=== PATIENT | male | born 1990 | race Caucasian/White ===

== ENCOUNTER 2021-03-13 12:08 | Emergency (ER) | payer MEDICAID, SELFPAY ==
--- NOTE | ~2021-03-13 | CT_ITS ---
EXAMINATION: CT HEAD WITHOUT CONTRAST CLINICAL INFORMATION: Status post CVA. Dizziness and right leg numbness since yesterday. Past history of drug abuse COMPARISON: No previous at this institution. TECHNIQUE: Contiguous axial imaging was performed from the skull base to vertex without intravenous administration of contrast. This CT examination was performed using dose optimization techniques as appropriate, variously including the following: *Automated exposure control *Adjustment of mA and/or kV according to patient size (this includes techniques or standardized protocols for targeted exams where dose is matched to indication/reason for exam; i.e. extremities or head) *Use of iterative reconstruction technique DLP: 707 mGy-cm FINDINGS: There is no evidence of acute intra-axial or extra-axial hemorrhage. There is a bilateral hypodensity seen in both cerebral hemispheres likely edema or infarct. Question age. There is punctate calcification seen in the left cerebellar hemisphere axial image 28/06. No abnormal mass effect or midline shift is seen. Garcia to white matter differentiation is well preserved. No extra-axial fluid collections are identified. The ventricles are normal in size. There is no abnormal attenuation within the brain parenchyma. The osseous structures and soft tissues are normal. The mastoid air cells and visualized portions of the paranasal sinuses are well aerated. CT/CT head/brain wo con IMPRESSION: Acute symmetrical hypodensity in bilateral posterior cerebellar hemispheres question infarct versus edema, new versus old. Consider MRI brain without contrast for further evaluation. There is no acute intracranial bleed or midline shift. Results were discussed by phone with YOLIS Herrera in the ER at 3:43PM
--- NOTE | ~2021-03-13 | XR_ITS ---
EXAMINATION: TIBIA-FIBULA BILATERAL CLINICAL INFORMATION: Swelling osteomyelitis question COMPARISON: None TECHNIQUE: Frontal and lateral views tibia and fibula right and left. FINDINGS: No radiographic evidence of bone destruction or bone lysis to suggest osteomyelitis. No periosteal reaction. Surrounding soft tissue unremarkable. No subcutaneous emphysema. Mild degenerative osteoarthritic changes of the knees bilateral. XR/XR tibia fibula LT 2V IMPRESSION: No radiographic changes to suggest osteomyelitis.
--- NOTE | ~2021-03-13 | MR_ITS ---
EXAMINATION: MR BRAIN WITHOUT CONTRAST CLINICAL INFORMATION: Stroke. COMPARISON: CT head from 03/13/2021. TECHNIQUE: MRI of the brain was obtained using routine sequences without contrast. FINDINGS: No focal restricted diffusion is demonstrated to suggest acute or subacute cerebral ischemia. No evidence of acute or chronic hemorrhagic products on heme-sensitive imaging. Symmetric encephalomalacia and atrophy of the bilateral inferior-posterior cerebellar hemispheres. Few nonspecific scattered supratentorial periventricular and deep white matter T2 FLAIR hyperintensities. No additional parenchymal signal abnormalities. No overt supratentorial volume loss. No abnormal mass effect. No midline shift. Normal appearance of the pituitary gland. Normal positioning of the cerebellar tonsils. Normal arterial and venous vascular flow voids are present. Normal, homogeneous marrow signal. Mild mucosal thickening of the paranasal sinuses. Trace bilateral mastoid effusions. MR/MR head/brain wo con IMPRESSION: 1. No acute intracranial abnormalities. 2. Symmetric chronic encephalomalacia and atrophy of the bilateral inferior-posterior cerebellar hemispheres. Minimal nonspecific supratentorial white matter changes.
--- NOTE | ~2021-03-13 | US_ITS ---
EXAMINATION: US VENOUS ULTRASOUND WITH DOPPLER LOWER EXTREMITY, BILATERAL CLINICAL INFORMATION: Bilateral lower extremity swelling COMPARISON: None TECHNIQUE: Ultrasound of the deep veins is performed from the hip to the calf with compression sonography and color and pulse Doppler assessment. Spectral analysis with color-flow imaging is performed. FINDINGS: RIGHT: There is normal venous compression and respiratory variation and augmented flow. The visualized common femoral vein, superficial femoral vein, profunda femoral vein, popliteal vein, and the trifurcation region shows no evidence of deep venous thrombosis. There is no significant popliteal fossa cyst. LEFT: There is normal venous compression and respiratory variation and augmented flow. The visualized common femoral vein, superficial femoral vein, profunda femoral vein, popliteal vein, and the trifurcation region shows no evidence of deep venous thrombosis. There is no significant popliteal fossa cyst. US/US venous duplex LE BI IMPRESSION: No DVT demonstrated in the bilateral lower extremity.
--- NOTE | ~2021-03-13 | XR_ITS ---
EXAMINATION: TIBIA-FIBULA BILATERAL CLINICAL INFORMATION: Swelling osteomyelitis question COMPARISON: None TECHNIQUE: Frontal and lateral views tibia and fibula right and left. FINDINGS: No radiographic evidence of bone destruction or bone lysis to suggest osteomyelitis. No periosteal reaction. Surrounding soft tissue unremarkable. No subcutaneous emphysema. Mild degenerative osteoarthritic changes of the knees bilateral. XR/XR tibia fibula RT 2V IMPRESSION: No radiographic changes to suggest osteomyelitis.
--- NOTE | ~2021-03-13 | XR_ITS ---
EXAMINATION: XR CHEST CLINICAL INFORMATION: Leg swelling. COMPARISON: None TECHNIQUE: 2 views of the chest were obtained. FINDINGS: No significant abnormality is noted involving the heart, lungs, mediastinum, bony thorax or soft tissues. XR/XR chest 2V IMPRESSION: Unremarkable chest examination.
[2021-03-13 12:14] VITALS: BP 124/68; BP 140/82; PULSE 113; PULSE 72; RESP 18; TEMP 36.6; O2SAT 96; O2SAT 99; BMI 28.2
--- NOTE | 2021-03-13 12:39 | ECG_ITS ---
Test Reason : GENERAL MEDICINE Blood Pressure : / mmHG Vent. Rate : 061 BPM Atrial Rate : 061 BPM P-R Int : 132 ms QRS Dur : 076 ms QT Int : 404 ms P-R-T Axes : 031 051 032 degrees QTc Int : 406 ms Normal sinus rhythm ST elevation, consider early repolarization Borderline ECG No previous ECGs available Referred By: Ave Worley Electronically Signed By:Emre Hoffmann
[2021-03-13 13:07] LABS: MANUAL DIFF FLAG NO
[2021-03-13 13:09] LABS: Basophils Percent Auto 0.5 % (0-2); Eosinophils Absolute Auto 0.2 X10*3/uL (0.0-0.4); Eosinophils Percent Auto 4.8 % (0-4); Hematocrit 41.6 % (42.0-52.0); Hemoglobin 13.5 g/dl (14.0-18.0); Lymphocytes Absolute Auto 1.1 X10*3/uL (1.2-4.9); Lymphocytes Percent Auto 29.8 % (20-40); Mean Corpuscular HGB Conc 32.5 g/dl (31.0-36.0); Mean Corpuscular Hemoglobin 28.8 pg (27.0-33.0); Mean Corpuscular Volume 88.7 fL (80.0-98.0); Mean Platelet Volume 11.8 fL (9.4-12.4); Monocytes Absolute Auto 0.4 X10*3/uL (0.1-1.2); Monocytes Percent Auto 9.4 % (2-11); Neutrophils Absolute Auto 2.1 x10*3/uL (2.0-8.3); Neutrophils Percent Auto 55.5 % (45-73); Platelet Count 162 X10*3/uL (160-400); Red Blood Count 4.69 X10*6/uL (4.60-5.80); Red Cell Distribution Width 13.1 % (11.0-16.0); White Blood Count 3.7 X10*3/uL (4.8-10.8)
[2021-03-13 13:13] LABS: Prothrombin Time 11.2 SEC (9.9-13.0)
[2021-03-13 13:29] LABS: Alanine Aminotransferase 36 U/L (0-40); Alkaline Phosphatase 62 U/L (39-117); Anion Gap 11 (12-20); Aspartate Amino Transferase 46 U/L (5-37); Bilirubin Total 0.8 mg/dL (0.0-1.0); Blood Urea Nitrogen 10 mg/dL (9-16); Calcium 9.2 mg/dL (8.4-10.2); Carbon Dioxide 28 mmol/L (22-29); Chloride 106 mmol/L (96-108); Creatinine Clr Calc Pharmacy 177.9; Estimated Glomerular Filt Rate > 60; Glucose Random 95 mg/dL (60-115); Potassium 4.3 mmol/L (3.3-5.1); Sodium 141 mmol/L (135-145); Total Protein 6.5 g/dL (6.5-8.0)
[2021-03-13 13:35] LABS: B Type Natriuretic Peptide 22 pg/mL (<100)
[2021-03-13 13:38] LABS: Appearance Urine CLEAR; Color Urine YELLOW; Glucose Urine UA NEG (NEG); Leukocyte Esterase Urine NEG (NEG); Nitrite Urine NEG (NEG); Specific Gravity - Urine 1.015 (1.005-1.025); Urine Blood NEG (NEG); Urine Ketones 5 MG/DL (NEG); Urine Protein TRACE MG/DL (NEG-TRACE)
--- NOTE | 2021-03-13 14:12 | ED_ITS ---
HPI - Extremity Problem General Chief complaint: Extremity Problem <YOLIS Herrera Last Filed: 03/13/21 17:56> Stated complaint: MARCOS LOW EXT SWELLING <YOLIS Herrera Last Filed: 03/13/21 17:56> Time Seen by Provider: 03/13/21 12:39 <YOLIS Herrera Last Filed: 03/13/21 17:56> Source: patient and EMS <YOLIS Herrera Last Filed: 03/13/21 17:56> Mode of arrival: EMS <YOLIS Herrera Last Filed: 03/13/21 17:56> Limitations: other ( history of CVA and dysarthria left-sided residual weakness and abnormal gait since then) <YOLIS Herrera Last Filed: 03/13/21 17:56> History of Present Illness HPI Narrative: 30-year-old male who reports he has a past medical 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 He reports that he was waiting at [facility] in the waiting room yesterday and the wait was too long therefore he left and his legs were more swollen yesterday. He showed me teresa stephenson for proof. He reports he has a history of clots. He states that his left arm for the past 4 days has been having intermittent numbness and tingling although since yesterday morning when he woke up around 9am he has been having right thigh numbness that has been constant since yesterday morning. He reports associated visual changes since yesterday morning when he woke up. He denies any dizziness, headaches, neck pain/ stiffness, chest pain or shortness of breath, dyspnea on exertion, orthopnea, palpitations, nausea/vomiting /diarrhea, rashes, recent travel or immobilization, recent surgical procedure, history of PVD, history of gout or recent illness or any other symptoms complaints or concerns at this time. He denies any drug usage. <YOLIS Herrera Last Filed: 03/13/21 17:56> MD Complaint: extremity pain and extremity swelling <YOLIS Herrera Last Filed: 03/13/21 17:56> Onset (ago): day(s) ( For the past 2-4 days ) <YOLIS Herrera Last Filed: 03/13/21 17:56> Pain Consistency: constant and other ( improving) <YOLIS Herrera Last Filed: 03/13/21 17:56> Location: left, right and lower extremity <YOLIS Herrera Last Filed: 03/13/21 17:56> Radiation: none <YOLIS Herrera Last Filed: 03/13/21 17:56> Relieving factors: nothing <YOLIS Herrera Last Filed: 03/13/21 17:56> Exacerbating factors: nothing <YOLIS Herrera Last Filed: 03/13/21 17:56> Associated symptoms: other ( reports intermittent paresthesias to left arm and constant paresthesias to right thigh and blurry vision since yesterday morning around 09:00) <YOLIS Herrera Last Filed: 03/13/21 17:56> Related Data Home medications: Previous Rx's Medication Instructions Recorded cephalexin 500 mg capsule 500 mg PO QID 7 Days #28 cap 03/13/21 doxycycline hyclate 100 mg capsule 100 mg PO BID 7 Days #14 cap 03/13/21 naproxen 500 mg tablet 500 mg PO BID PRN 10 Days #20 tab 03/13/21 <YOLIS Herrera Last Filed: 03/13/21 17:56> Allergies/Adverse reactions: Allergies Allergy/AdvReac Type Severity Reaction Status Date / Time No Known Allergies Allergy Verified 03/13/21 12:37 <YOLIS Herrera Last Filed: 03/13/21 17:56> Review of Systems Review of Systems: Constitutional : No Fever, No Chills, No Night Sweats, No Fatigue, No Malaise ENT/Mouth : No Ear Pain, No Nasal Congestion, No Sinus Pain, No sore throat, No Rhinorrhea Eyes: positive blurry vision, No Eye Pain, No Swelling, No Redness, No Foreign Body, No Discharge Cardiovascular : No Chest Pain, No SOB, No Dyspnea on Exertion, No Orthopnea, No Palpitations Respiratory : No Cough, No Sputum, No Wheezing, No Dyspnea Gastrointestinal : No Nausea, No Vomiting, No Diarrhea, No Constipation, No abdominal Pain, No Hematochezia, No Melena Genitourinary : No Dysuria, No Urinary Frequency, No Urinary Incontinence, No Urgency, No Flank Pain Musculoskeletal : positive bilateral lower extremity edema/redness, No joint pain, No Myalgias Skin : No lacerations Neuro : positive numbness/paresthesia intermittently to left arm and constant to right thigh, No Focal weakness, no general weakness, No Loss of Consciousness, No Dizziness, No Headache <YOLIS Herrera - Last Filed: 03/13/21 17:56> Yes all other systems are reviewed and are negative <YOLIS Herrera - Last Filed: 03/13/21 17:56> [facility] Past Medical History Attestation statement: The following information was validated with the patient. <YOLIS Herrera - Last Filed: 03/13/21 17:56> Social History Social History: Social History Advance Directives: No Advance Directives Information Provided: Yes <YOLIS Herrera - Last Filed: 03/13/21 17:56> Physical Exam Vital Signs: Vital Signs: Last Vital Signs Temp 97.9 F 03/13/21 14:48 Pulse 51 03/13/21 19:21 Resp 14 03/13/21 19:21 BP 105/62 03/13/21 19:21 Pulse Ox 99 03/13/21 19:21 BMI result Body Mass Index 28.2 Vital signs have been reviewed as normal and appeared to be correct. Blood pressure normal. Heart rate normal. Respiration rate normal. Temperature normal. Oxygen saturation normal. <YOLIS Herrera - Last Filed: 03/13/21 17:56> Vital Signs: Last Vital Signs Temp 97.9 F 03/13/21 14:48 Pulse 51 03/13/21 19:21 Resp 14 03/13/21 19:21 BP 105/62 03/13/21 19:21 Pulse Ox 99 03/13/21 19:21 BMI result Body Mass Index 28.2 <YOLIS Oakes - Last Filed: 03/13/21 21:28> Appearance: Alert. Oriented X3. No acute distress. Head: Normal external exam. Normocephalic. Atraumatic. Able to rotate head bilaterally. Eyes: PERRLA. EOMI. No nystagmus noted. Conjunctiva and sclera normal. Eyelids normal. Corneal reflex normal. ENT: EAC normal. TM's Normal. Hearing normal. Pharynx normal. Uvula midline. tongue midline. Moist mucous membranes. No trismus noted. No drooling noted. No muffled voice noted. No nystagmus noted. Neck: Normal inspection. Neck supple. FROM. No adenopathy. Trachea midline. Thyroid Normal. No meningeal signs. No neck mass noted. CVS: Normal heart rate and rhythm. Heart sound normal. No murmurs noted. Pulses normal throughout. Respiratory: No respiratory distress. Painless inspiration. Breath sounds normal. No wheezes/rales/rhonchi noted. Chest nontender. No accessory muscle usage noted or decreased air movement noted. Abdomen: Soft and nontender. Bowel sounds normal in all 4 quadrants. No distention noted. No organomegaly noted. No visible injury noted. Back: No CVA tenderness. Full range of motion noted. Skin: Skin warm and dry. Normal skin color. Normal skin turgor. No rashes/lesions/lacerations noted. Extremities: Plus one lower extremity pitting edema. No calf tenderness is noted. Extremities exhibit normal range of motion. Extremities nontender. Able to shrug shoulders bilaterally and keep up against resistance. Neuro: Oriented X 3. residual left upper and lower extremity motor deficit 4/5 with strength. Although on my exam it appears that patient has motor deficit to the right upper and lower extremity 4/5 with strength. He has full sensation on all 4 extremities. Reflexes are normal. He is moving all extremities. No focal motor deficits. Cranial nerves II-XI intact bilaterally. Facial strength normal. Normal cognition. He has chronic dysarthria he reports this is his baseline. He has chronic ataxia he reports this is his baseline. No pronator drift. No tremor noted. No fasciculations noted. No rigidity noted. Muscle tone normal throughout. No asterixis noted. [id number] test normal. Heel to doran test normal. Does not sway with eyes open. Romberg test negative. Rapid alternating movement upper extremity normal. Rapid alternating movement lower extremity normal. Hand drop from overhead Misses face. NIHSS score 2. <YOLIS Herrera - Last Filed: 03/13/21 17:56> NIH Stroke Scale Internal: Initial- Upon Arrival <YOLIS Herrera - Last Filed: 03/13/21 17:56> Time: 12:40 <Ave Worley PA - Last Filed: 03/13/21 17:56> Level of Consciousness: Alert <YOLIS Herrera - Last Filed: 03/13/21 17:56> Level of Consciousness Questions: Answers both questions correctly <YOLIS Herrera - Last Filed: 03/13/21 17:56> Level of Consciousness Commands: Performs both tasks correctly <YOLIS Herrera - Last Filed: 03/13/21 17:56> Best Gaze: Normal <Ave Worley PA - Last Filed: 03/13/21 17:56> Visual: No visual loss <YOLIS Herrera - Last Filed: 03/13/21 17:56> Facial Palsy: Normal <Ave Worley PA - Last Filed: 03/13/21 17:56> Motor Arm (Right): No drift <Ave Worley PA - Last Filed: 03/13/21 17:56> Motor Arm (Left): No drift <Ave Worley PA - Last Filed: 03/13/21 17:56> Motor Leg (Right): No drift <Ave Worley PA - Last Filed: 03/13/21 17:56> Motor Leg (Left): No drift <YOLIS Herrera - Last Filed: 03/13/21 17:56> Limb Ataxia: Present in one limb (chronic per patient ) <Ave Worley PA - Last Filed: 03/13/21 17:56> Sensory: Normal <Ave Worley PA - Last Filed: 03/13/21 17:56> Best Language: No aphasia <YOLIS Herrera - Last Filed: 03/13/21 17:56> Dysarthia: Mild to moderate dysarthria (which pt reports is chronic) <Ave Worley PA - Last Filed: 03/13/21 17:56> Extinction and Inattention: No abnormality <Ave Worley PA - Last Filed: 03/13/21 17:56> Score: 2 <YOLIS Herrera - Last Filed: 03/13/21 17:56> 2 <YOLIS Oakes - Last Filed: 03/13/21 21:28> Course Reevaluation(s) Reevaluation #1: - labs reviewed and patient with a white blood cell count of 4000. H&H of 13.5 / 41.6. Anion gap 11. AST 46. Otherwise all other labs including troponin BNP within normal limits. UA revealed 5 ketones otherwise no evidence of UTI. - Bilateral duplex ultrasound of lower extremities negative for DVT. Patient most likely pedal edema. - Chest x-ray within normal limits no acute processes are noted. - CT scan of brain without contrast revealed acute symmetrical hypodensity and bilateral posterior cerebral hemispheres question infarct versus edema, new versus old. therefore Dr. Hutton the radiologist called me and told me that an MRI brain without contrast for further evaluation and treatment was indicated/ warranted at this time. There is no acute intercranial bleed or mid line shift. Therefore MRI screening form done at this time and patient will be going to MRI without contrast for further evaluation treatment. Patient understands agrees with this plan. <YOLIS Herrera - Last Filed: 03/13/21 17:56> Time: 15:43 <YOLIS Herrera - Last Filed: 03/13/21 17:56> Reevaluation #2: Sign out to ALMAZ Barrow pending MRI of Brain without contrast <YOLIS Herrera - Last Filed: 03/13/21 17:56> Time: 17:55 <YOLIS Herrera - Last Filed: 03/13/21 17:56> Reevaluation #3: Patient's MRI came back negative for acute stroke. Patient is at baseline mentally and physically. Case was discussed with neurologist Dr. Cobb he was informed of patient's history, physical exam, and diagnostics. He was also sent patient MRI report. He states patient to be discharged with outpatient follow-up with PCP first and than refer to neurolgist covered by insurance. Patient lower extremity x-rays negative for osteomyelitis. Patient will be treated as a cellulitis and discharged with antibiotics. Patient formed follow with primary care provider. Patient vital signs are stable. Once again patient is at baseline. Patient legs especially right is warm and slightly red. 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 He reports that he was waiting at [facility] in the waiting room yesterday and the wait was too long therefore he left and his legs were more swollen yesterday. He showed me pictures for proof. He reports he has a history of clots. He states that his left arm for the past 4 days has been having intermittent numbness and tingling although since yesterday morning when he woke up around 9am he has been having right thigh numbness that has been constant since yesterday morning. He reports associated visual changes since yesterday morning when he woke up. - On exam patient is alert and oriented x3. Not in any acute distress. He does have chronic dysarthria and ataxia and left residual weakness that he reports is at baseline since he had his stroke in 2019. Although on my exam it is noted that he has 4/5 strength to the right upper and lower extremities. Therefore NIH SS score 2 at this time. Although patient has non disabling symptoms other than what he already had from his stroke in 2019 and his symptoms started 2-4 days ago therefore not a tPA candidate at this time. Plan: Labs, EKG, chest x-ray, CT scan of brain without contrast, bilateral duplex ultrasound of lower extremities then re-evaluate. <YOLIS Herrera - Last Filed: 03/13/21 17:56> Medical Records Attestation: I reviewed the patient's medical records. <YOLIS Herrera - Last Filed: 03/13/21 17:56> Lab Data Attestation: I reviewed the patient's lab results. <YOLIS Herrera - Last Filed: 03/13/21 17:56> Result diagrams: : 03/13/21 12:52 03/13/21 12:53 <YOLIS Herrera - Last Filed: 03/13/21 17:56> Labs: Lab Results 03/13/21 03/13/21 03/13/21 Range/Units 12:52 12:52 12:53 WBC 3.7 L (4.8-10.8) X10*3/uL RBC 4.69 (4.60-5.80) X10*6/uL Hgb 13.5 L (14.0-18.0) g/dl Hct 41.6 L (42.0-52.0) % MCV 88.7 (80.0-98.0) fL MCH 28.8 (27.0-33.0) pg MCHC 32.5 (31.0-36.0) g/dl RDW 13.1 (11.0-16.0) % Plt Count 162 (160-400) X10*3/uL MPV 11.8 (9.4-12.4) fL Immature Gran % (Auto) 0.0 (0.0-0.4) % Neut % (Auto) 55.5 (45-73) % Lymph % (Auto) 29.8 (20-40) % Lynn % (Auto) 9.4 (2-11) % Eos % (Auto) 4.8 H (0-4) % Baso % (Auto) 0.5 (0-2) % Lymph # (Auto) 1.1 L (1.2-4.9) X10*3/uL Lynn # (Auto) 0.4 (0.1-1.2) X10*3/uL Eos # (Auto) 0.2 (0.0-0.4) X10*3/uL Baso # (Auto) 0.0 (0.0-0.2) X10*3/uL Abs Immat Gran (auto) 0.00 (0.00-0.03) X10*3/uL Absolute Neuts (auto) 2.1 (2.0-8.3) x10*3/uL Absolute Nucleated RBC 0.000 (0.0-0.012) X10*3/uL Nucleated RBC % (auto) 0.0 (0.0-0.2) /100WBC Hold Purple Top PT 11.2 (9.9-13.0) SEC INR 1.0 (0.9-1.1) Sodium (135-145) mmol/L Potassium (3.3-5.1) mmol/L Chloride (96-108) mmol/L Carbon Dioxide (22-29) mmol/L Anion Gap (12-20) BUN (9-16) mg/dL Creatinine (0.5-1.4) mg/dL Estim Creat Clear Calc Estimated GFR Random Glucose (60-115) mg/dL Calcium (8.4-10.2) mg/dL Magnesium (1.6-2.6) mg/dL Total Bilirubin (0.0-1.0) mg/dL AST (5-37) U/L ALT (0-40) U/L Alkaline Phosphatase (39-117) U/L Troponin I High Sens (<3.5-35.0) ng/L B-Natriuretic Peptide 22 (<100) pg/mL Total Protein (6.5-8.0) g/dL Albumin (3.5-5.0) g/dL Urine Color Urine Appearance Urine pH (5.0-8.0) Ur Specific [place] (1.005-1.025) Urine Protein (NEG-TRACE) MG/DL Urine Glucose (UA) (NEG) MG/DL Urine Ketones (NEG) MG/DL Urine Blood (NEG) Urine Nitrite (NEG) Ur Leukocyte Esterase (NEG) COVID-19 (MATHIEU) (Negative) COVID-19 Clin Com 03/13/21 03/13/21 03/13/21 Range/Units 12:53 12:53 12:53 WBC (4.8-10.8) X10*3/uL RBC (4.60-5.80) X10*6/uL Hgb (14.0-18.0) g/dl Hct (42.0-52.0) % MCV (80.0-98.0) fL MCH (27.0-33.0) pg MCHC (31.0-36.0) g/dl RDW (11.0-16.0) % Plt Count (160-400) X10*3/uL MPV (9.4-12.4) fL Immature Gran % (Auto) (0.0-0.4) % Neut % (Auto) (45-73) % Lymph % (Auto) (20-40) % Lynn % (Auto) (2-11) % Eos % (Auto) (0-4) % Baso % (Auto) (0-2) % Lymph # (Auto) (1.2-4.9) X10*3/uL Lynn # (Auto) (0.1-1.2) X10*3/uL Eos # (Auto) (0.0-0.4) X10*3/uL Baso # (Auto) (0.0-0.2) X10*3/uL Abs Immat Gran (auto) (0.00-0.03) X10*3/uL Absolute Neuts (auto) (2.0-8.3) x10*3/uL Absolute Nucleated RBC (0.0-0.012) X10*3/uL Nucleated RBC % (auto) (0.0-0.2) /100WBC Hold Purple Top SEE NOTE PT (9.9-13.0) SEC INR (0.9-1.1) Sodium 141 (135-145) mmol/L Potassium 4.3 (3.3-5.1) mmol/L Chloride 106 (96-108) mmol/L Carbon Dioxide 28 (22-29) mmol/L Anion Gap 11 L (12-20) BUN 10 (9-16) mg/dL Creatinine 0.78 (0.5-1.4) mg/dL Estim Creat Clear Calc 177.9 Estimated GFR > 60 Random Glucose 95 (60-115) mg/dL Calcium 9.2 (8.4-10.2) mg/dL Magnesium 2.0 (1.6-2.6) mg/dL Total Bilirubin 0.8 (0.0-1.0) mg/dL AST 46 H (5-37) U/L ALT 36 (0-40) U/L Alkaline Phosphatase 62 (39-117) U/L Troponin I High Sens < 3.5 (<3.5-35.0) ng/L B-Natriuretic Peptide (<100) pg/mL Total Protein 6.5 (6.5-8.0) g/dL Albumin 4.0 (3.5-5.0) g/dL Urine Color Urine Appearance Urine pH (5.0-8.0) Ur Specific [place] (1.005-1.025) Urine Protein (NEG-TRACE) MG/DL Urine Glucose (UA) (NEG) MG/DL Urine Ketones (NEG) MG/DL Urine Blood (NEG) Urine Nitrite (NEG) Ur Leukocyte Esterase (NEG) COVID-19 (MATHIEU) (Negative) COVID-19 Clin Com 03/13/21 03/13/21 Range/Units 13:23 16:11 WBC (4.8-10.8) X10*3/uL RBC (4.60-5.80) X10*6/uL Hgb (14.0-18.0) g/dl Hct (42.0-52.0) % MCV (80.0-98.0) fL MCH (27.0-33.0) pg MCHC (31.0-36.0) g/dl RDW (11.0-16.0) % Plt Count (160-400) X10*3/uL MPV (9.4-12.4) fL Immature Gran % (Auto) (0.0-0.4) % Neut % (Auto) (45-73) % Lymph % (Auto) (20-40) % Lynn % (Auto) (2-11) % Eos % (Auto) (0-4) % Baso % (Auto) (0-2) % Lymph # (Auto) (1.2-4.9) X10*3/uL Lynn # (Auto) (0.1-1.2) X10*3/uL Eos # (Auto) (0.0-0.4) X10*3/uL Baso # (Auto) (0.0-0.2) X10*3/uL Abs Immat Gran (auto) (0.00-0.03) X10*3/uL Absolute Neuts (auto) (2.0-8.3) x10*3/uL Absolute Nucleated RBC (0.0-0.012) X10*3/uL Nucleated RBC % (auto) (0.0-0.2) /100WBC Hold Purple Top PT (9.9-13.0) SEC INR (0.9-1.1) Sodium (135-145) mmol/L Potassium (3.3-5.1) mmol/L Chloride (96-108) mmol/L Carbon Dioxide (22-29) mmol/L Anion Gap (12-20) BUN (9-16) mg/dL Creatinine (0.5-1.4) mg/dL Estim Creat Clear Calc Estimated GFR Random Glucose (60-115) mg/dL Calcium (8.4-10.2) mg/dL Magnesium (1.6-2.6) mg/dL Total Bilirubin (0.0-1.0) mg/dL AST (5-37) U/L ALT (0-40) U/L Alkaline Phosphatase (39-117) U/L Troponin I High Sens (<3.5-35.0) ng/L B-Natriuretic Peptide (<100) pg/mL Total Protein (6.5-8.0) g/dL Albumin (3.5-5.0) g/dL Urine Color YELLOW Urine Appearance CLEAR Urine pH 7.0 (5.0-8.0) Ur Specific [place] 1.015 (1.005-1.025) Urine Protein TRACE (NEG-TRACE) MG/DL Urine Glucose (UA) NEG (NEG) MG/DL Urine Ketones 5 (NEG) MG/DL Urine Blood NEG (NEG) Urine Nitrite NEG (NEG) Ur Leukocyte Esterase NEG (NEG) COVID-19 (MATHIEU) Negative (Negative) COVID-19 Clin Com See Note <YOLIS Herrera - Last Filed: 03/13/21 17:56> Lab Results 03/13/21 03/13/21 03/13/21 Range/Units 12:52 12:52 12:53 WBC 3.7 L (4.8-10.8) X10*3/uL RBC 4.69 (4.60-5.80) X10*6/uL Hgb 13.5 L (14.0-18.0) g/dl Hct 41.6 L (42.0-52.0) % MCV 88.7 (80.0-98.0) fL MCH 28.8 (27.0-33.0) pg MCHC 32.5 (31.0-36.0) g/dl RDW 13.1 (11.0-16.0) % Plt Count 162 (160-400) X10*3/uL MPV 11.8 (9.4-12.4) fL Immature Gran % (Auto) 0.0 (0.0-0.4) % Neut % (Auto) 55.5 (45-73) % Lymph % (Auto) 29.8 (20-40) % Lynn % (Auto) 9.4 (2-11) % Eos % (Auto) 4.8 H (0-4) % Baso % (Auto) 0.5 (0-2) % Lymph # (Auto) 1.1 L (1.2-4.9) X10*3/uL Lynn # (Auto) 0.4 (0.1-1.2) X10*3/uL Eos # (Auto) 0.2 (0.0-0.4) X10*3/uL Baso # (Auto) 0.0 (0.0-0.2) X10*3/uL Abs Immat Gran (auto) 0.00 (0.00-0.03) X10*3/uL Absolute Neuts (auto) 2.1 (2.0-8.3) x10*3/uL Absolute Nucleated RBC 0.000 (0.0-0.012) X10*3/uL Nucleated RBC % (auto) 0.0 (0.0-0.2) /100WBC Hold Purple Top PT 11.2 (9.9-13.0) SEC INR 1.0 (0.9-1.1) Sodium (135-145) mmol/L Potassium (3.3-5.1) mmol/L Chloride (96-108) mmol/L Carbon Dioxide (22-29) mmol/L Anion Gap (12-20) BUN (9-16) mg/dL Creatinine (0.5-1.4) mg/dL Estim Creat Clear Calc Estimated GFR Random Glucose (60-115) mg/dL Calcium (8.4-10.2) mg/dL Magnesium (1.6-2.6) mg/dL Total Bilirubin (0.0-1.0) mg/dL AST (5-37) U/L ALT (0-40) U/L Alkaline Phosphatase (39-117) U/L Troponin I High Sens (<3.5-35.0) ng/L B-Natriuretic Peptide 22 (<100) pg/mL Total Protein (6.5-8.0) g/dL Albumin (3.5-5.0) g/dL Urine Color Urine Appearance Urine pH (5.0-8.0) Ur Specific [place] (1.005-1.025) Urine Protein (NEG-TRACE) MG/DL Urine Glucose (UA) (NEG) MG/DL Urine Ketones (NEG) MG/DL Urine Blood (NEG) Urine Nitrite (NEG) Ur Leukocyte Esterase (NEG) COVID-19 (MATHIEU) (Negative) COVID-19 Clin Com 03/13/21 03/13/21 03/13/21 Range/Units 12:53 12:53 12:53 WBC (4.8-10.8) X10*3/uL RBC (4.60-5.80) X10*6/uL Hgb (14.0-18.0) g/dl Hct (42.0-52.0) % MCV (80.0-98.0) fL MCH (27.0-33.0) pg MCHC (31.0-36.0) g/dl RDW (11.0-16.0) % Plt Count (160-400) X10*3/uL MPV (9.4-12.4) fL Immature Gran % (Auto) (0.0-0.4) % Neut % (Auto) (45-73) % Lymph % (Auto) (20-40) % Lynn % (Auto) (2-11) % Eos % (Auto) (0-4) % Baso % (Auto) (0-2) % Lymph # (Auto) (1.2-4.9) X10*3/uL Lynn # (Auto) (0.1-1.2) X10*3/uL Eos # (Auto) (0.0-0.4) X10*3/uL Baso # (Auto) (0.0-0.2) X10*3/uL Abs Immat Gran (auto) (0.00-0.03) X10*3/uL Absolute Neuts (auto) (2.0-8.3) x10*3/uL Absolute Nucleated RBC (0.0-0.012) X10*3/uL Nucleated RBC % (auto) (0.0-0.2) /100WBC Hold Purple Top SEE NOTE PT (9.9-13.0) SEC INR (0.9-1.1) Sodium 141 (135-145) mmol/L Potassium 4.3 (3.3-5.1) mmol/L Chloride 106 (96-108) mmol/L Carbon Dioxide 28 (22-29) mmol/L Anion Gap 11 L (12-20) BUN 10 (9-16) mg/dL Creatinine 0.78 (0.5-1.4) mg/dL Estim Creat Clear Calc 177.9 Estimated GFR > 60 Random Glucose 95 (60-115) mg/dL Calcium 9.2 (8.4-10.2) mg/dL Magnesium 2.0 (1.6-2.6) mg/dL Total Bilirubin 0.8 (0.0-1.0) mg/dL AST 46 H (5-37) U/L ALT 36 (0-40) U/L Alkaline Phosphatase 62 (39-117) U/L Troponin I High Sens < 3.5 (<3.5-35.0) ng/L B-Natriuretic Peptide (<100) pg/mL Total Protein 6.5 (6.5-8.0) g/dL Albumin 4.0 (3.5-5.0) g/dL Urine Color Urine Appearance Urine pH (5.0-8.0) Ur Specific [place] (1.005-1.025) Urine Protein (NEG-TRACE) MG/DL Urine Glucose (UA) (NEG) MG/DL Urine Ketones (NEG) MG/DL Urine Blood (NEG) Urine Nitrite (NEG) Ur Leukocyte Esterase (NEG) COVID-19 (MATHIEU) (Negative) COVID-19 Clin Com 03/13/21 03/13/21 Range/Units 13:23 16:11 WBC (4.8-10.8) X10*3/uL RBC (4.60-5.80) X10*6/uL Hgb (14.0-18.0) g/dl Hct (42.0-52.0) % MCV (80.0-98.0) fL MCH (27.0-33.0) pg MCHC (31.0-36.0) g/dl RDW (11.0-16.0) % Plt Count (160-400) X10*3/uL MPV (9.4-12.4) fL Immature Gran % (Auto) (0.0-0.4) % Neut % (Auto) (45-73) % Lymph % (Auto) (20-40) % Lynn % (Auto) (2-11) % Eos % (Auto) (0-4) % Baso % (Auto) (0-2) % Lymph # (Auto) (1.2-4.9) X10*3/uL Lynn # (Auto) (0.1-1.2) X10*3/uL Eos # (Auto) (0.0-0.4) X10*3/uL Baso # (Auto) (0.0-0.2) X10*3/uL Abs Immat Gran (auto) (0.00-0.03) X10*3/uL Absolute Neuts (auto) (2.0-8.3) x10*3/uL Absolute Nucleated RBC (0.0-0.012) X10*3/uL Nucleated RBC % (auto) (0.0-0.2) /100WBC Hold Purple Top PT (9.9-13.0) SEC INR (0.9-1.1) Sodium (135-145) mmol/L Potassium (3.3-5.1) mmol/L Chloride (96-108) mmol/L Carbon Dioxide (22-29) mmol/L Anion Gap (12-20) BUN (9-16) mg/dL Creatinine (0.5-1.4) mg/dL Estim Creat Clear Calc Estimated GFR Random Glucose (60-115) mg/dL Calcium (8.4-10.2) mg/dL Magnesium (1.6-2.6) mg/dL Total Bilirubin (0.0-1.0) mg/dL AST (5-37) U/L ALT (0-40) U/L Alkaline Phosphatase (39-117) U/L Troponin I High Sens (<3.5-35.0) ng/L B-Natriuretic Peptide (<100) pg/mL Total Protein (6.5-8.0) g/dL Albumin (3.5-5.0) g/dL Urine Color YELLOW Urine Appearance CLEAR Urine pH 7.0 (5.0-8.0) Ur Specific [place] 1.015 (1.005-1.025) Urine Protein TRACE (NEG-TRACE) MG/DL Urine Glucose (UA) NEG (NEG) MG/DL Urine Ketones 5 (NEG) MG/DL Urine Blood NEG (NEG) Urine Nitrite NEG (NEG) Ur Leukocyte Esterase NEG (NEG) COVID-19 ([facility]ATHIEU) Negative (Negative) COVID-19 Clin Com See Note <YOLIS Oakes - Last Filed: 03/13/21 21:28> Imaging Data Chest x-ray: Attestation: I personally reviewed and interpreted this imaging study as follows: <YOLIS Herrera - Last Filed: 03/13/21 17:56> Radiologist's impression: FINDINGS: No significant abnormality is noted involving the heart, lungs, mediastinum, bony thorax or soft tissues. XR/XR chest 2V IMPRESSION: Unremarkable chest examination. <YOLIS Herrera - Last Filed: 03/13/21 17:56> Venous duplex ultrasound of bilateral lower extremities: Attestation: I personally reviewed and interpreted this imaging study as follows: <YOLIS Herrera - Last Filed: 03/13/21 17:56> Radiologist's impression: FINDINGS: RIGHT: There is normal venous compression and respiratory variation and augmented flow. The visualized common femoral vein, superficial femoral vein, profunda femoral vein, popliteal vein, and the trifurcation region shows no evidence of deep venous thrombosis. ? There is no significant popliteal fossa cyst. LEFT: There is normal venous compression and respiratory variation and augmented flow. The visualized common femoral vein, superficial femoral vein, profunda femoral vein, popliteal vein, and the trifurcation region shows no evidence of deep venous thrombosis. ? There is no significant popliteal fossa cyst. US/US venous duplex LE BI IMPRESSION: No DVT demonstrated in the bilateral lower extremity. <YOLIS Herrera Last Filed: 03/13/21 17:56> CT scan of brain without contrast: Attestation: I personally reviewed and interpreted this imaging study as follows: <YOLIS Herrera Last Filed: 03/13/21 17:56> Radiologist's impression: FINDINGS: There is no evidence of acute intra-axial or extra-axial hemorrhage. There is a bilateral hypodensity seen in both cerebral hemispheres likely edema or infarct. Question age. There is punctate calcification seen in the left cerebellar hemisphere axial image 24/3. No abnormal mass effect or midline shift is seen. Garcia to white matter differentiation is well preserved. No extra-axial fluid collections are identified. The ventricles are normal in size. There is no abnormal attenuation within the brain parenchyma. The osseous structures and soft tissues are normal. The mastoid air cells and visualized portions of the paranasal sinuses are well aerated. ? CT/CT head/brain wo con IMPRESSION: Acute symmetrical hypodensity in bilateral posterior cerebellar hemispheres question infarct versus edema, new versus old. Consider MRI brain without contrast for further evaluation. ? There is no acute intracranial bleed or midline shift. ? Results were discussed by phone with YOLIS Herrera in the ER at 3:43PM <YOLIS Herrera - Last Filed: 03/13/21 17:56> ECG Data Attestation EKG: I personally reviewed and interpreted this ECG as follows: <YOLIS Herrera - Last Filed: 03/13/21 17:56> ECG interpretation date: 03/13/21 <YOLIS Herrera Last Filed: 03/13/21 17:56> ECG interpretation time: 12:41 <YOLIS Herrera - Last Filed: 03/13/21 17:56> Interpretation: Normal sinus rhythm with a ventricular rate of [address] elevation no acute ischemic changes are noted. No prior EKGs To compare to in our system at this time. <YOLIS Herrera - Last Filed: 03/13/21 17:56> Critical Care Time Critical Care Time Critical Care Time: Yes <YOLIS Herrera Last Filed: 03/13/21 17:56> Total Critical Care Time: 60 <YOLIS Herrera Last Filed: 03/13/21 17:56> Attestation: I personally attest to this time spent taking care of the patient <YOLIS Herrera Last Filed: 03/13/21 17:56> Discharge Plan Discharge Clinical Impression: Pedal edema, Cellulitis, Paresthesia <YOLIS Herrera - Last Filed: 03/13/21 17:56> Patient Disposition: Home, Self-Care <YOLIS Herrera - Last Filed: 03/13/21 17:56> Instructions: Cellulitis (ED), Paresthesia (ED), Leg Edema (ED) <YOLIS Herrera - Last Filed: 03/13/21 17:56> Additional Instructions: Your MRI came back negative for stroke. You are safe for discharge. Will need follow-up with your primary care provider and neurologist. Return to the ED for worsening swelling of lower extremity, red streaks, worsening redness, chest pain, shortness of breath, calf pain, fever, chills, new neuro deficits, headache, dizziness, bluish black discoloration extremities, or any other concerning symptoms. <YOLIS Herrera - Last Filed: 03/13/21 17:56> Prescriptions: New cephalexin 500 mg capsule 500 mg PO QID 7 Days Qty: 28 RF: 0 doxycycline hyclate 100 mg capsule 100 mg PO BID 7 Days Qty: 14 RF: 0 naproxen 500 mg tablet 500 mg PO BID PRN (Reason: pain) 10 Days Qty: 20 RF: 0 <YOLIS Herrera - Last Filed: 03/13/21 17:56> Print Language: Chilean <YOLIS Herrera - Last Filed: 03/13/21 17:56>
[2021-03-13 14:48] VITALS: BP 112/81; PULSE 59; RESP 16; TEMP 36.6; O2SAT 98
[2021-03-13] MEDS: Gabapentin 600 MG TABLET PO (14:57)
[2021-03-13 15:33] LABS: Troponin-I High Sensitivity < 3.5 ng/L (<3.5-35.0)
[2021-03-13 16:10] VITALS: BP 117/74; PULSE 60; RESP 17; O2SAT 98
--- NOTE | 2021-03-13 16:18 | PC.NURSE ---
PT STATES HE HAS SLOW SPEECH FROM A CVA A FEW YEARS AGO. PT ABLE TO EXPRESS HIS NEEDS, AMBULATES TO THE BATHROOM WITHOUT ANY ASSISTANCE. PT USING CELLULAR DEVICE WHILE AWAITING MRI. MRI SCREENING FORM COMPLETED AND FAXED TO MRI.
[2021-03-13 16:42] LABS: COVID-19 Test Negative (Negative); IDNOW Serial# 9DD0AD1C
[2021-03-13 19:21] VITALS: BP 105/62; PULSE 51; RESP 14; O2SAT 99
--- NOTE | 2021-03-13 19:35 | PC.NURSE ---
PT AMBULATING IN [address]. REEVALED BY YOLIS LARKIN. MRI NEGATIVE. PT ASKING FOR SOMETHING TO EAT. XRAYS ORDERED ON RLE. PT HAS OLD ABRASION NOTED. SLIGHTLY RED. PPP. EDEMA NOTED. NEUROS UNCHANGED.
== END 2021-03-13 21:40 | disposition home or self-care (01) ==
PROVIDERS: Physician Assistant Medical; Emergency Provider Emergency Medicine; PCP Internal Medicine
DX: R60.0 Localized edema (principal); L03.116 Cellulitis of left lower limb; L03.115 Cellulitis of right lower limb; R20.2 Paresthesia of skin; R42 Dizziness and giddiness; R06.02 Shortness of breath; R51.9 Headache, unspecified; Z86.73 Personal history of transient ischemic attack (TIA), and cerebral infarction without residual deficits; Z20.822 Contact with and (suspected) exposure to COVID-19; Z79.899 Other long term (current) drug therapy
CPT/HCPCS: 36415; 70450; 70551; 71046; 73590; 80053; 81003; 83735; 83880; 84484; 85025; 85610; 87635; 93005; 93970; 99284; 99291